=== PATIENT | female | born 1955 | race Caucasian/White ===

== ENCOUNTER 2021-07-10 16:52 | Inpatient (IN) ==
--- NOTE | 2021-07-10 17:40 | DR.SOBA ---
HPI Time Seen Time Seen by Provider: 07/10/21 17:39 Primary Care Physician Primary Care Physician: ANDREW HPI Comment HPI Comment: PATIENT IS 66YR OLD FEMALE IN ER WITH HEADACHE, BODYACHES, INCREASING SOB, NAUSEA AND DIARRHEA TIMES 2 WEEKS. GETTING WORSE. Complaints Chief Complaint Doctors Comments: NAUSEA, BODYACHES, SOB, HEADACHE AND DIARRHEA TIMES 2 WEEKS. Chief Complaint:: PT'S SPOUSE STATES PATIENT HAS BEEN SICK FOR 2 WEEKS WITH NAUSEA, ACHY, SHORTNESS OF BREATH, H/A, DIARRHEA, TIRED. UPON ENTRY OF TRIAGE ROOM NOTED PATIENT TO HAVE LABORED BREATHING. NOTED PATIENTS SPO2 TO BE 74%. COVID-19 Coronavirus risk:travel/contact w/high risk person: No Has patient experienced Coronavirus symptoms: Yes Coronavirus symptoms experienced: Shortness of Breath Reviewed Nurses Notes Reviewed: Yes Source History Provided: Patient and Family Member Mode of Arrival Mode of Arrival: Ambulatory Timing Onset of Chief Complaint: 06/26/21 Duration Duration: Weeks Context Onset:: At Rest PE Risk Factors:: None History of:: None PMH PMH Past Medical History: Yes Past Medical History: Asthma, Diabetes, Dyslipidemia, Hypertension and Sleep Apnea Past Surgical History: Yes Surgical History: Bowel Resection, Cholecystectomy, Hysterectomy, Ortho Surgery and Tonsillectomy Family History History of Family Medical Conditions: No Social History Does any household member use tobacco: No Alcohol Use: None Do you use any recreational Drugs:: No Lives With: Spouse Lives Where: Home Travel Risk Coronavirus risk:travel/contact w/high risk person: No Has patient experienced Coronavirus symptoms: Yes Coronavirus symptoms experienced: Shortness of Breath Infectious screening In the last 2 months have you had wt loss of >10#?: NO Have you had fever, night sweats or hemotysis?: No Have you traveled outside the country in the last 6 months?: No Isolation: Droplet ROS Review of Systems Constitutional: See HPI, Weakness and Fatigue; negative Fever Eyes: No Symptoms Reported and See HPI ENTM: See HPI and Nose Congestion Respiratoy: See HPI, Productive Cough and Short of Breath; negative Wheezing Cardiovascular: No Symptoms Reported, See HPI and Chest Pain (TIGHTNESS.) Gastrointestinal/Abdominal: See HPI and Diarrhea; negative Abdominal Pain and Vomiting Genitourinary: No Symptoms Reported and See HPI; negative Dysuria Neurological: See HPI, Headache and Weakness; negative Dizziness Musculoskeletal: See HPI and Muscle Pain Integumentary: No Symptoms Reported and See HPI; negative Change in Color, Rash and Juandice Hematologic/Lymphatic: No Symptoms Reported, See HPI and Easy Bruising Endocrine: No Symptoms Reported, Increased Thirst and Increased Urine Psychiatric: No Symptoms Reported and See HPI All Other Systems: Reviewed and Negative PE Vital Signs Vitals: Temperature 98.7 F Pulse Rate 70 Respiratory Rate 24 Blood Pressure 173/84 O2 Sat by Pulse Oximetry 90 General Limitations: No Limitations General Appearance: Alert and In No Apparent Distress Head Head Exam: Normal Inspection Eyes Eye exam: Normal Appearance; negative Scleral Icterus and Conjunctival Injection ENT ENT Exam: Normal Exam, Normal Oropharynx, Normal External Ear Exam and TM's Normal Bilaterally Neck Neck Exam: Normal Inspection and Trachea Midline; negative Tenderness and Lymphadenopathy Chest Chest Inspection: Normal Inspection and Symmetric Chest Wall Rise; negative Tenderness Respiratory Respiratory Exam: Normal Lung Sounds Bilat and Respiratory Distress; negative Accessory Muscle Use and Chest Wall Tenderness Respiratory Exam: Bilateral: Rhonchi and Lower: Rhonchi Cardiovascular Cardiovascular Exam: Regular Rate, Normal Rhythm and Normal Heart Sounds; negative Systolic Murmur and Diastolic Murmur Abdominal Exam Abdominal Exam: Normal Inspection, Normal Bowel Sounds and Soft; negative Tenderness Extremities Extremities Exam: Normal Inspection and Normal Capillary Refill Back Back Exam: Normal Inspection; negative (R) CVA Tenderness and (L) CVA Tenderness Neurologic Neurological Exam: Alert and Oriented X3; negative Motor Sensory Deficit Psychiatric Psychiatric Exam: Normal Affect and Normal Mood Skin Skin Exam: Dry MDM Additional Information Obtained Additional Information Obtained From: Family Differential Diagnosis Differential Diagnosis: Bronchitis, CHF, Dysrhythmia, Hyponatremia, Mycardial Infarction, Pneumonia, Pneumothorax, Pulmonary embolism, Respiratory Insufficiency, Sinusitis and URI COURSE Treatment Treatment: SEE ORDERS. Education/Counseling Education/Counseling: Patient and Family Educated On: Diagnosis ROR Labs Reviewed Laboratory Results Reviewed?: Yes Result Diagrams: 07/10/21 17:56 07/10/21 17:56 Laboratory: WBC 5.6 X10^3/uL (3.6-10.0) 07/10/21 17:56 RBC 4.50 X10^6/uL (3.5-5.4) 07/10/21 17:56 Hgb 12.8 g/dL (12.0-16.0) 07/10/21 17:56 Hct 37.8 % (36.0-47.0) 07/10/21 17:56 MCV 84.0 fL (80.0-100.0) 07/10/21 17:56 MCH 28.6 pg (27.0-34.0) 07/10/21 17:56 MCHC 34.0 g/dL (33.0-35.0) 07/10/21 17:56 RDW 14.7 % (11.6-16.5) 07/10/21 17:56 Plt Count 218 X10^3/uL (150.0-450.0) 07/10/21 17:56 MPV 8.8 fL (7.4-11.0) 07/10/21 17:56 Neut % (Auto) 62.0 % (42.0-75.0) 07/10/21 17:56 Lymph % (Auto) 27.9 % (21.0-51.0) 07/10/21 17:56 [place] % (Auto) 9.8 % (0.0-13.0) 07/10/21 17:56 Eos % (Auto) 0.1 % (0.9-2.9) L 07/10/21 17:56 Baso % (Auto) 0.2 % (0.2-1.0) 07/10/21 17:56 Neut # (Auto) 3.5 x10^3/uL (2.2-4.8) 07/10/21 17:56 Lymph # (Auto) 1.6 X10^3/uL (1.3-2.9) 07/10/21 17:56 [place] # (Auto) 0.5 x10^3/uL (0.3-0.8) 07/10/21 17:56 Eos # (Auto) 0.0 x10^3/uL (0.0-0.2) 07/10/21 17:56 Baso # (Auto) 0.0 X10^3/uL (0.0-0.1) 07/10/21 17:56 Absolute Nucleated RBC 0.1 /100WBC 07/10/21 17:56 D-Dimer 1.37 ug/ml (0.0-0.57) H* 07/10/21 17:56 Sample Site Rra 07/10/21 18:55 ABG pH 7.460 (7.35-7.45) H 07/10/21 18:55 ABG pCO2 37.0 mmHg (35.0-45.0) 07/10/21 18:55 ABG pO2 55.0 mmHg (80.0-100.0) L 07/10/21 18:55 ABG HCO3 26.3 mmol/L (22-26) H 07/10/21 18:55 ABG O2 Saturation 90.0 % (90-100) 07/10/21 18:55 ABG Base Excess 2.5 mmol/L (-2.0-2.0) H 07/10/21 18:55 Pedro Test Pos 07/10/21 18:55 A-a Gradient 155.0 mmHg 07/10/21 18:55 FiO2 36.0 07/10/21 18:55 Blood Gas Comments Michael well ms/mtf 07/10/21 18:55 Sodium 136 mmol/L (136-145) 07/10/21 17:56 Corrected Sodium 139 mmol/L (136-145) 07/10/21 17:56 Potassium 4.1 mmol/L (3.5-5.1) 07/10/21 17:56 Chloride 102 mmol/L (98-107) 07/10/21 17:56 Carbon Dioxide 25.2 mmol/L (21-32) 07/10/21 17:56 BUN 12 mg/dL (7-18) 07/10/21 17:56 Creatinine 1.30 mg/dL (0.55-1.02) H 07/10/21 17:56 Est GFR (MDRD) Af Amer 53 (>60) L 07/10/21 17:56 Est GFR (MDRD) Non-Af 43 (>60) L 07/10/21 17:56 Glucose 212 mg/dL (65-99) H 07/10/21 17:56 Lactic Acid 1.4 mmol/L (0.4-2.0) 07/10/21 17:56 Calcium 8.3 mg/dL (8.5-10.1) L 07/10/21 17:56 Corrected Calcium 9.3 mg/dL (8.5-10.1) 07/10/21 17:56 Ferritin 805 ng/mL (8-252) H 07/10/21 17:56 Total Bilirubin 0.20 mg/dL (0.2-1.0) 07/10/21 17:56 AST 25 Units/L (15-37) 07/10/21 17:56 ALT 17 Units/L (12-78) 07/10/21 17:56 Alkaline Phosphatase 77 Units/L (46-116) 07/10/21 17:56 Creatine Kinase 36 Units/L (26-192) 07/10/21 17:56 CK-MB (CK-2) < 1.0 ng/mL (0-4.0) 07/10/21 17:56 CK/CKMB % Calc 2.8 % (<4) 07/10/21 17:56 Troponin I < 0.02 ng/mL (0-1.5) 07/10/21 17:56 C-Reactive Protein 48.60 mg/L (0-3.0) H 07/10/21 17:56 B-Natriuretic Peptide 398 pg/mL (0-79) H 07/10/21 17:56 Total Protein 7.1 g/dL (6.4-8.2) 07/10/21 17:56 Albumin 2.7 g/dL (3.4-5.0) L 07/10/21 17:56 Globulin 4.4 g/dL (2.5-4.5) 07/10/21 17:56 Albumin/Globulin Ratio 0.6 Ratio (1.1-2.1) L 07/10/21 17:56 SARS-CoV-2 (PCR) Positive (NEGATIVE) A 07/10/21 18:08 Influenza Type A (PCR) Negative (NEGATIVE) 07/10/21 18:08 Influenza Type B (PCR) Negative (NEGATIVE) 07/10/21 18:08 RSV (PCR) Negative (NEGATIVE) 07/10/21 18:08 XRAY XRAY Interpreted by: Radiologist (REPORTS NOTED AND DISCUSSED WITH PATIENT ) and Self Opioid Opioid Risk Tool Age (Param box if 16-45): No History of Preadolescent Sexual Abuse: No Total: 0 Total Score Risk Category: Low Risk Copyright: Herman predicting aberrant behaviors Diagnosis Discharge Problem: Pneumonia, COVID-19 virus infection, Hypoxia Instructions Forms: Precautions for COVID19 [facility] Patient [facility] Social Distancing
--- NOTE | 2021-07-10 18:07 | RAD ---
HISTORYHYPOXIA ASTHMA, DM, HTN, SLEEP APNEA, DYSLIPIDEMIA, SX: BOWEL RESECTION, CHOLECYSTECTOMY, HYSTERECTOMY, TONSILLECTOMY, ORTHOSTUDYCHEST, 1 VIEWCOMPARISONNone available.FINDINGSThe trachea is midline. The cardiac silhouette is enlarged. The lungs demonstrate airspace opacities in the perihilar regions of the chest bilaterally with intervening interstitial disease/densities which can be seen with mild edema or perihilar pneumonia/infectious etiologies. Please correlate medically and follow-up to complete resolution. No other acute cardiopulmonary process is seen. No pneumothorax is identified. No large pleural effusion is evident. The bony thorax is unremarkable.IMPRESSIONPerihilar airspace and interstitial disease observed, as above.Electronically signed by: MIGDALIA HERNANDEZ III (Jul 10, 2021 18:05:31)
[2021-07-10 18:21] LABS: BASOPHILS % (AUTO) 0.2 % (0.2-1.0); EOSINOPHILS % (AUTO) 0.1 % (0.9-2.9); HEMATOCRIT 37.8 % (36.0-47.0); HEMOGLOBIN 12.8 g/dL (12.0-16.0); LYMPHOCYTES # (AUTO) 1.6 X10^3/uL (1.3-2.9); LYMPHOCYTES % (AUTO) 27.9 % (21.0-51.0); MEAN CORPUSCULAR HEMOGLOBIN 28.6 pg (27.0-34.0); MEAN PLATELET VOLUME 8.8 fL (7.4-11.0); MONOCYTES # (AUTO) 0.5 x10^3/uL (0.3-0.8); MONOCYTES % (AUTO) 9.8 % (0.0-13.0); NEUTROPHILS # (AUTO) 3.5 x10^3/uL (2.2-4.8); PLATELET COUNT 218 X10^3/uL (150.0-450.0); RED CELL DISTRIBUTION WIDTH 14.7 % (11.6-16.5); WHITE BLOOD COUNT 5.6 X10^3/uL (3.6-10.0)
[2021-07-10 18:34] LABS: LACTIC ACID 1.4 mmol/L (0.4-2.0)
[2021-07-10 18:42] LABS: ALANINE AMINOTRANSFERASE 17 Units/L (12-78); ALBUMIN 2.7 g/dL (3.4-5.0); ALKALINE PHOSPHATASE 77 Units/L (46-116); ASPARTATE AMINO TRANSFERASE 25 Units/L (15-37); BLOOD UREA NITROGEN 12 mg/dL (7-18); CALCIUM 8.3 mg/dL (8.5-10.1); CARBON DIOXIDE 25.2 mmol/L (21-32); CHLORIDE 102 mmol/L (98-107); CKMB % 2.8 % (<4); COR CA(FOR HYPOALB) 9.3 mg/dL (8.5-10.1); COR NA(FOR HYPERGLY) 139 mmol/L (136-145); CREATINE KINASE 36 Units/L (26-192); CREATINE KINASE MB < 1.0 ng/mL (0-4.0); SODIUM 136 mmol/L (136-145); TOTAL PROTEIN 7.1 g/dL (6.4-8.2); TROPONIN I < 0.02 ng/mL (0-1.5); eGFR NON BLACK RACES 43 (>60)
[2021-07-10] MEDS ORDERED: TYLENOL 325 MG TAB PO ONE ×2 (18:53→18:55)
[2021-07-10 18:59] LABS: ABG ALLEN TEST POS; ABG BASE EXCESS 2.5 mmol/L (-2.0-2.0); ABG HCO3 26.3 mmol/L (22-26)
[2021-07-10] MEDS ORDERED: NS 100 ML IV 100 ML ONE ×2 (19:20→20:40)
--- NOTE | 2021-07-10 20:05 | CT ---
HISTORYELEVATED D DIMERSTUDYCTA CHESTCOMPARISONCleveland Clinic [facility]t radi[facility], July 10, 2021TECHNIQUEAxial CT images of the chest were obtained after the administration of IV contrast utilizing a CTA protocol. 3D MIPS were performed and reviewed for further evaluation.Radiation dose: 660.20 mGy-cm total DLPFINDINGSNo significant pericardial effusion.Shotty hilar and mediastinal lymph nodes.Aorta is normal in caliber without dissection.Pulmonary arteries are normal in caliber without filling defects to suggest a pulmonary embolus.Airways are widely patent.Thyroid appears normal.No pleural effusion.Bilateral patchy diffuse airspace opacities scattered throughout the lung parenchyma.No pneumothorax.No concerning lung parenchymal lesion identified.Status post cholecystectomy.Imaged portion of the upper abdomen is unremarkable.No acute osseous abnormality.IMPRESSION1. No pulmonary embolus identified.2. Diffuse patchy airspace opacities scattered throughout the lung parenchyma is concerning for an atypical/viral infectious process. Recommend correlation with COVID testing.Electronically signed by: Tevin Arita (Jul 10, 2021 20:03:57)
[2021-07-10] MEDS ORDERED: ZOSYN VIAL 3.375 GRAMS 3.375 G in NS 100 ML IV + SPIKE MINIBAG* 100 ML IV ONE (20:33)
[2021-07-10] MEDS ORDERED: ZOSYN VIAL 3.375 GRAMS IV ONE (20:40)
[2021-07-10] MEDS ORDERED: NS 100 ML IV + SPIKE MINIBAG* 100 ML IV ONE (20:40)
[2021-07-10 22:46] VITALS: BMI 38.1
[2021-07-10] MEDS ORDERED: NS 1,000 ML IV 1,000 ML IV SCH (23:06)
[2021-07-10] MEDS ORDERED: REMDESIVIR 200 MG in NS 250 ML IV 250 ML IV ONE (23:06)
[2021-07-10] MEDS: SOLU-Medrol 40 MG VIAL IVP SCH (23:55)
[2021-07-11] MEDS: ASCORBIC ACID INJ MULTI-DOSE VIAL 1,500 MG in NS 100 ML IV 100 ML IV SCH ×2 (02:19→09:16)
[2021-07-11 05:23] LABS: BASOPHILS % (AUTO) 0.2 % (0.2-1.0); HEMATOCRIT 36.5 % (36.0-47.0); HEMOGLOBIN 12.6 g/dL (12.0-16.0); LYMPHOCYTES # (AUTO) 0.6 X10^3/uL (1.3-2.9); MEAN CORPUSCULAR HEMOGLOBIN 28.6 pg (27.0-34.0); MEAN CORPUSCULAR HGB CONC 34.5 g/dL (33.0-35.0); MEAN PLATELET VOLUME 8.9 fL (7.4-11.0); MONOCYTES # (AUTO) 0.2 x10^3/uL (0.3-0.8); NEUTROPHILS # (AUTO) 3.3 x10^3/uL (2.2-4.8); NEUTROPHILS % (AUTO) 80.8 % (42.0-75.0); PLATELET COUNT 214 X10^3/uL (150.0-450.0); RED BLOOD COUNT 4.39 X10^6/uL (3.5-5.4); WHITE BLOOD COUNT 4.1 X10^3/uL (3.6-10.0)
[2021-07-11] MEDS: ZOSYN VIAL 3.375 GRAMS 3.375 G in NS 100 ML IV + SPIKE MINIBAG* 100 ML IV SCH ×3 (05:24→21:02)
[2021-07-11 05:38] LABS: ALBUMIN 2.6 g/dL (3.4-5.0); CALCIUM 8.1 mg/dL (8.5-10.1); CARBON DIOXIDE 25.4 mmol/L (21-32); COR CA(FOR HYPOALB) 9.2 mg/dL (8.5-10.1); CREATININE 1.2 mg/dL (0.55-1.02); TOTAL PROTEIN 6.8 g/dL (6.4-8.2)
[2021-07-11] MEDS: HumuLIN R SUBCUT PRN ×4 (05:39→20:16)
[2021-07-11] MEDS ORDERED: HumuLIN R SUBCUT SCH (06:00)
[2021-07-11] MEDS: SOLU-Medrol 40 MG VIAL IVP SCH ×3 (06:03→21:02)
[2021-07-11] MEDS ORDERED: LEXAPRO ONE (08:49)
[2021-07-11] MEDS ORDERED: PEPCID TAB 40 MG PO SCH (09:00)
[2021-07-11] MEDS ORDERED: VITAMIN D (1.25MG) PO SCH (09:00)
[2021-07-11] MEDS ORDERED: VITAMIN A PO SCH (09:00)
[2021-07-11] MEDS: PULMICORT NEB TX 0.5 MG NEB SCH ×2 (09:10→21:46)
[2021-07-11] MEDS: BROVANA IN SCH ×2 (09:10→21:46)
[2021-07-11] MEDS: LOPRESSOR TAB 25 MG PO SCH ×2 (09:17→20:13)
[2021-07-11] MEDS: LEXAPRO PO SCH (09:17)
[2021-07-11] MEDS: NORVASC TAB 5 MG PO SCH (09:18)
[2021-07-11] MEDS: PEPCID TAB 20 MG PO SCH (09:19)
[2021-07-11] MEDS: LOVENOX INJ 30 MG SYR SC SCH ×2 (09:19→20:13)
[2021-07-11] MEDS: PriLOSEC PO SCH (09:20)
[2021-07-11] MEDS: TRICOR TAB 160 MG PO SCH (09:21)
[2021-07-11] MEDS: SYNTHROID 175 mcg TAB PO SCH (09:21)
[2021-07-11] MEDS: ZINC SULFATE PO SCH ×2 (09:22→20:13)
[2021-07-11] MEDS ORDERED: NS 100 ML IV 100 ML ONE (09:24)
[2021-07-11] MEDS: NovoLIN N or HumuLIN N SC SCH ×2 (09:29→21:01)
--- NOTE | 2021-07-11 16:29 | DR.H&P ---
H&P History & Physical for Day of: H&P Date: 07/11/21 Chief Complaint Chief Complaint: worsening dyspnea, cough Allergies Allergies Allergy/AdvReac Type Severity Reaction Status Date / Time No Known Drug Allergies Allergy Verified 07/10/21 18:42 History of Present Illness History of Present Illness: Ms Craven is a 66y/o female with a PMH of asthma, Diabetes, HTN and HLD presented with worsening dyspnea, generalized weakness and poor appetite. Patient reports being sick for over a week and was being treated outpatient. Her daughter had covid over 2 weeks ago. Patient has not had covid infection before. She did have some nausea, vomiting and decreased appetite. She has been afebrile. She is currently on 6L NC. ER work up - Labs reviewed - CTA: no PE, pulmonary opacities noted Plan: Admit to ICU with COVID protocol. Continue IV Remdesivir, Solumedrol and antibiotics. Continue nebs and pulmicort. Continue vitamin support. Wean O2 as tolerated to keep sats >88%. PT/OT as tolerated. Encourage PO intake. Will order ECHO to evaluate LV function. Resume home medications. Monitor AM labs and imaging. Time spent for clinical assessment, reviewing labs/imaging, physical exam, decision making and documentation greater than 45 mins. Past Medical History Past Medical History: Asthma, Diabetes, Dyslipidemia, Hypertension and Sleep Apnea Past Surgical History Surgical History: Bowel Resection, Cholecystectomy, Hysterectomy, Ortho Surgery and Tonsillectomy Family History Family Medical History: Cancer and Hypertension Social History Does patient currently use any type of tobacco product: No Have you used tobacco products in the last 12 months: No Type of Tobacco Use: None Does any household member use tobacco: No Alcohol Use: None Drug Use: None Prescription drug monitoring program results: PDMP reviewed and no concerns identified Medications Home Medications: No Known Drug Allergies Allergy (Verified 07/10/21 18:42) CONTINUE taking the following medications amlodipine 5 mg PO DAILY 07/10/21 [History] amoxicillin-pot clavulanate 1 tab PO BID 07/10/21 [History] atorvastatin 20 mg PO DAILY 07/10/21 [History] escitalopram oxalate 10 mg PO DAILY 07/10/21 [History] famotidine 20 mg PO BID 07/10/21 [History] insulin NPH isoph U-100 human [Humulin N NPH U-100 Insulin] 51 unit SUBCUT BID 07/10/21 [History] insulin regular human [Humulin R Regular U-100 Insuln] 1 sliding scale dose SUBCUT TID 07/10/21 [History] levothyroxine [Euthyrox] 175 mcg PO DAILY 07/10/21 [History] metformin 500 mg PO DAILY 07/10/21 [History] metoprolol tartrate 25 mg PO BID 07/10/21 [History] omeprazole 40 mg PO DAILY 07/10/21 [History] Labs Result Diagrams: 07/13/21 04:53 07/13/21 04:53 Labs: Laboratory WBC 4.1 X10^3/uL (3.6-10.0) 07/11/21 04:26 RBC 4.39 X10^6/uL (3.5-5.4) 07/11/21 04:26 Hgb 12.6 g/dL (12.0-16.0) 07/11/21 04:26 Hct 36.5 % (36.0-47.0) 07/11/21 04:26 MCV 83.0 fL (80.0-100.0) 07/11/21 04:26 MCH 28.6 pg (27.0-34.0) 07/11/21 04:26 MCHC 34.5 g/dL (33.0-35.0) 07/11/21 04:26 RDW 15.0 % (11.6-16.5) 07/11/21 04:26 Plt Count 214 X10^3/uL (150.0-450.0) 07/11/21 04:26 MPV 8.9 fL (7.4-11.0) 07/11/21 04:26 Neut % (Auto) 80.8 % (42.0-75.0) H 07/11/21 04:26 Lymph % (Auto) 15.0 % (21.0-51.0) L 07/11/21 04:26 [place] % (Auto) 4.0 % (0.0-13.0) 07/11/21 04:26 Eos % (Auto) 0.0 % (0.9-2.9) L 07/11/21 04:26 Baso % (Auto) 0.2 % (0.2-1.0) 07/11/21 04:26 Neut # (Auto) 3.3 x10^3/uL (2.2-4.8) 07/11/21 04:26 Lymph # (Auto) 0.6 X10^3/uL (1.3-2.9) L 07/11/21 04:26 [place] # (Auto) 0.2 x10^3/uL (0.3-0.8) L 07/11/21 04:26 Eos # (Auto) 0.0 x10^3/uL (0.0-0.2) 07/11/21 04:26 Baso # (Auto) 0.0 X10^3/uL (0.0-0.1) 07/11/21 04:26 Absolute Nucleated RBC 0.1 /100WBC 07/11/21 04:26 D-Dimer 1.37 ug/ml (0.0-0.57) H* 07/10/21 17:56 Sample Site Rra 07/10/21 18:55 ABG pH 7.460 (7.35-7.45) H 07/10/21 18:55 ABG pCO2 37.0 mmHg (35.0-45.0) 07/10/21 18:55 ABG pO2 55.0 mmHg (80.0-100.0) L 07/10/21 18:55 ABG HCO3 26.3 mmol/L (22-26) H 07/10/21 18:55 ABG O2 Saturation 90.0 % (90-100) 07/10/21 18:55 ABG Base Excess 2.5 mmol/L (-2.0-2.0) H 07/10/21 18:55 Pedro Test Pos 07/10/21 18:55 A-a Gradient 155.0 mmHg 07/10/21 18:55 FiO2 36.0 07/10/21 18:55 Blood Gas Comments Michael well ms/mtf 07/10/21 18:55 Sodium 140 mmol/L (136-145) 07/11/21 04:26 Corrected Sodium 144 mmol/L (136-145) 07/11/21 04:26 Potassium 4.2 mmol/L (3.5-5.1) 07/11/21 04:26 Chloride 103 mmol/L (98-107) 07/11/21 04:26 Carbon Dioxide 25.4 mmol/L (21-32) 07/11/21 04:26 BUN 11 mg/dL (7-18) 07/11/21 04:26 Creatinine 1.20 mg/dL (0.55-1.02) H 07/11/21 04:26 Est GFR (MDRD) Af Amer 58 (>60) L 07/11/21 04:26 Est GFR (MDRD) Non-Af 48 (>60) L 07/11/21 04:26 Glucose 282 mg/dL (65-99) H 07/11/21 04:26 POC Glucose (mg/dL) 287 mg/dL (65-99) H 07/11/21 16:16 Lactic Acid 1.4 mmol/L (0.4-2.0) 07/10/21 17:56 Calcium 8.1 mg/dL (8.5-10.1) L 07/11/21 04:26 Corrected Calcium 9.2 mg/dL (8.5-10.1) 07/11/21 04:26 Ferritin 805 ng/mL (8-252) H 07/10/21 17:56 Total Bilirubin 0.20 mg/dL (0.2-1.0) 07/11/21 04:26 AST 22 Units/L (15-37) 07/11/21 04:26 ALT 15 Units/L (12-78) 07/11/21 04:26 Alkaline Phosphatase 73 Units/L (46-116) 07/11/21 04:26 Creatine Kinase 36 Units/L (26-192) 07/10/21 17:56 CK-MB (CK-2) < 1.0 ng/mL (0-4.0) 07/10/21 17:56 CK/CKMB % Calc 2.8 % (<4) 07/10/21 17:56 Troponin I < 0.02 ng/mL (0-1.5) 07/10/21 17:56 C-Reactive Protein 48.60 mg/L (0-3.0) H 07/10/21 17:56 B-Natriuretic Peptide 398 pg/mL (0-79) H 07/10/21 17:56 Total Protein 6.8 g/dL (6.4-8.2) 07/11/21 04:26 Albumin 2.6 g/dL (3.4-5.0) L 07/11/21 04:26 Globulin 4.2 g/dL (2.5-4.5) 07/11/21 04:26 Albumin/Globulin Ratio 0.6 Ratio (1.1-2.1) L 07/11/21 04:26 SARS-CoV-2 (PCR) Positive (NEGATIVE) A 07/10/21 18:08 Influenza Type A (PCR) Negative (NEGATIVE) 07/10/21 18:08 Influenza Type B (PCR) Negative (NEGATIVE) 07/10/21 18:08 RSV (PCR) Negative (NEGATIVE) 07/10/21 18:08 Review of Systems Constitutional: Chills, Weakness and Malaise Eyes: No Symptoms Reported ENT: No Symptoms Reported Respiratory: Cough, Shortness of Breath, SOB with Excertion and Sputum Cardiovascular: No Symptoms Reported Gastrointestinal: Nausea Genitourinary: No Symptoms Reported Musculoskeletal: No Symptoms Reported Skin: No Symptoms Reported Neurological: No Symptoms Reported Physical Exam Vital Signs: Temperature 98 F Pulse Rate 76 Respiratory Rate 37 Blood Pressure 140/62 O2 Sat by Pulse Oximetry 94 Oriented: Normal Eyes: Normal Ear: Normal Nose: Normal Throat: Normal Respiratory: Diminished Throughout, Wheezes Throughout, RLL Rales and LLL Rales Cardiovascular: Normal Auscultation: Bowel Sounds: Normal Palpation: Normal Tenderness: Normal Skin: Decreased [place] Musculoskeletal: Normal Psychiatric: Anxiety Mood Description: Calm Affect: Normal Speech Pattern: Clear and Appropriate Assessment/Plan (1) Pneumonia: Qualifiers: Laterality: unspecified laterality Lung location: unspecified part of lung Pneumonia type: due to unspecified organism Qualified Code(s): J18.9 - Pneumonia, unspecified organism Status: Acute (2) COVID-19 virus infection: Status: Acute (3) Acute respiratory failure with hypoxia: Status: Acute (4) HTN (hypertension): Qualifiers: Hypertension type: primary hypertension Qualified Code(s): I10 - Essential (primary) hypertension Status: Acute Review H&P Reviewed: Yes Patient was examined?: Yes
[2021-07-11] MEDS ORDERED: SNACK - Diabetic Appropriate PO SCH (20:00)
[2021-07-11] MEDS: SNACK - Diabetic Appropriate PO SCH (20:12)
[2021-07-11] MEDS: REMDESIVIR 100 MG in NS 100 ML IV + SPIKE MINIBAG* 120 ML IV SCH (20:14)
[2021-07-12 05:25] LABS: BASOPHILS % (AUTO) 0.1 % (0.2-1.0); HEMATOCRIT 35.8 % (36.0-47.0); HEMOGLOBIN 12.3 g/dL (12.0-16.0); LYMPHOCYTES # (AUTO) 1.1 X10^3/uL (1.3-2.9); LYMPHOCYTES % (AUTO) 22.8 % (21.0-51.0); MEAN CORPUSCULAR HEMOGLOBIN 28.4 pg (27.0-34.0); MEAN CORPUSCULAR HGB CONC 34.2 g/dL (33.0-35.0); MEAN PLATELET VOLUME 8.8 fL (7.4-11.0); MONOCYTES # (AUTO) 0.4 x10^3/uL (0.3-0.8); MONOCYTES % (AUTO) 8.9 % (0.0-13.0); NEUTROPHILS # (AUTO) 3.2 x10^3/uL (2.2-4.8); NEUTROPHILS % (AUTO) 68.2 % (42.0-75.0); PLATELET COUNT 255 X10^3/uL (150.0-450.0); RED BLOOD COUNT 4.31 X10^6/uL (3.5-5.4); RED CELL DISTRIBUTION WIDTH 14.9 % (11.6-16.5); WHITE BLOOD COUNT 4.7 X10^3/uL (3.6-10.0)
[2021-07-12] MEDS: ZOSYN VIAL 3.375 GRAMS 3.375 G in NS 100 ML IV + SPIKE MINIBAG* 100 ML IV SCH ×3 (05:28→22:22)
[2021-07-12] MEDS: SOLU-Medrol 40 MG VIAL IVP SCH ×3 (05:28→22:22)
[2021-07-12 05:43] LABS: ALBUMIN 2.6 g/dL (3.4-5.0); CALCIUM 8.5 mg/dL (8.5-10.1); CARBON DIOXIDE 29.4 mmol/L (21-32); COR CA(FOR HYPOALB) 9.6 mg/dL (8.5-10.1); CREATININE 1.17 mg/dL (0.55-1.02); TOTAL PROTEIN 6.7 g/dL (6.4-8.2)
[2021-07-12] MEDS ORDERED: LEXAPRO ONE (08:26)
[2021-07-12] MEDS: BROVANA IN SCH ×2 (08:35→20:39)
[2021-07-12] MEDS: PULMICORT NEB TX 0.5 MG NEB SCH ×2 (08:35→20:39)
[2021-07-12] MEDS: LEXAPRO PO SCH (08:48)
[2021-07-12] MEDS: PEPCID TAB 20 MG PO SCH (08:49)
[2021-07-12] MEDS: LOPRESSOR TAB 25 MG PO SCH ×2 (08:49→20:34)
[2021-07-12] MEDS: LOVENOX INJ 30 MG SYR SC SCH ×2 (08:49→20:35)
[2021-07-12] MEDS: PriLOSEC PO SCH (08:49)
[2021-07-12] MEDS: NORVASC TAB 5 MG PO SCH (08:49)
[2021-07-12] MEDS: VITAMIN D3 125 mcg (5,000 UNITS) PO SCH (08:50)
[2021-07-12] MEDS: VITAMIN A PO SCH (08:50)
[2021-07-12] MEDS: TRICOR TAB 160 MG PO SCH (08:50)
[2021-07-12] MEDS: ZINC SULFATE PO SCH ×2 (08:50→20:58)
[2021-07-12] MEDS: VITAMIN C PO SCH (08:50)
[2021-07-12] MEDS: NovoLIN N or HumuLIN N SC SCH ×2 (09:23→20:34)
[2021-07-12] MEDS: SYNTHROID 175 mcg TAB PO SCH (09:23)
[2021-07-12] MEDS: HumuLIN R SUBCUT PRN ×3 (12:34→20:32)
[2021-07-12] MEDS: SNACK - Diabetic Appropriate PO SCH (20:34)
[2021-07-12] MEDS: REMDESIVIR 100 MG in NS 100 ML IV + SPIKE MINIBAG* 120 ML IV SCH (20:35)
[2021-07-13 05:33] LABS: BASOPHILS % (AUTO) 0 % (0.2-1.0); HEMATOCRIT 36.2 % (36.0-47.0); HEMOGLOBIN 12.2 g/dL (12.0-16.0); LYMPHOCYTES # (AUTO) 0.8 X10^3/uL (1.3-2.9); MEAN CORPUSCULAR HEMOGLOBIN 28.2 pg (27.0-34.0); MEAN CORPUSCULAR HGB CONC 33.7 g/dL (33.0-35.0); MEAN CORPUSCULAR VOLUME 83.7 fL (80.0-100.0); MEAN PLATELET VOLUME 8.6 fL (7.4-11.0); MONOCYTES # (AUTO) 0.5 x10^3/uL (0.3-0.8); MONOCYTES % (AUTO) 8.3 % (0.0-13.0); NEUTROPHILS # (AUTO) 4.7 x10^3/uL (2.2-4.8); NEUTROPHILS % (AUTO) 78.7 % (42.0-75.0); PLATELET COUNT 282 X10^3/uL (150.0-450.0); RED BLOOD COUNT 4.33 X10^6/uL (3.5-5.4); RED CELL DISTRIBUTION WIDTH 14.7 % (11.6-16.5); WHITE BLOOD COUNT 5.9 X10^3/uL (3.6-10.0)
[2021-07-13 05:40] LABS: ALBUMIN 2.5 g/dL (3.4-5.0); CALCIUM 7.8 mg/dL (8.5-10.1); CARBON DIOXIDE 30.1 mmol/L (21-32); CREATININE 1.2 mg/dL (0.55-1.02); TOTAL PROTEIN 6.4 g/dL (6.4-8.2)
[2021-07-13] MEDS: SOLU-Medrol 40 MG VIAL IVP SCH ×3 (05:49→21:20)
[2021-07-13] MEDS: ZOSYN VIAL 3.375 GRAMS 3.375 G in NS 100 ML IV + SPIKE MINIBAG* 100 ML IV SCH ×3 (05:49→22:40)
[2021-07-13] MEDS: HumuLIN R SUBCUT PRN ×2 (05:55→13:24)
[2021-07-13] MEDS ORDERED: LEXAPRO ONE (08:46)
[2021-07-13] MEDS: LOPRESSOR TAB 25 MG PO SCH ×2 (08:51→21:20)
[2021-07-13] MEDS: LEXAPRO PO SCH (08:51)
[2021-07-13] MEDS: LOVENOX INJ 30 MG SYR SC SCH ×2 (08:52→21:21)
[2021-07-13] MEDS: NORVASC TAB 5 MG PO SCH (08:54)
[2021-07-13] MEDS: PEPCID TAB 20 MG PO SCH (08:54)
[2021-07-13] MEDS: SYNTHROID 175 mcg TAB PO SCH (08:55)
[2021-07-13] MEDS: PriLOSEC PO SCH (08:55)
[2021-07-13] MEDS: TRICOR TAB 160 MG PO SCH (08:55)
[2021-07-13] MEDS: VITAMIN A PO SCH (08:55)
[2021-07-13] MEDS: ZINC SULFATE PO SCH ×2 (08:56→21:20)
[2021-07-13] MEDS: VITAMIN D3 125 mcg (5,000 UNITS) PO SCH (08:56)
[2021-07-13] MEDS: VITAMIN C PO SCH (08:56)
[2021-07-13] MEDS: PULMICORT NEB TX 0.5 MG NEB SCH ×2 (09:45→20:30)
[2021-07-13] MEDS: BROVANA IN SCH ×2 (09:45→20:30)
[2021-07-13] MEDS ORDERED: LASIX IVP ONE (10:44)
--- NOTE | 2021-07-13 10:52 | PCM.PROG ---
Progress Note Progress Note for Day of Date of Exam: 07/12/21 Subjective Subjective: Patient seen at bedside, no overnight events. She remains on 6L NC, reports feeling better. She still has some cough. Her appetite is still decreased, tolerating some food. Denies fever or chills. Labs reviewed Plan: Wean O2 as tolerated to keep sats>88%. Patient sats have remained above 90%. Continue IV solumedrol, Remdesivir and antibiotics. Continue nebs, pulmicort and IS. PT/OT as tolerated. Follow echo results and culture. Continue vitamin support. Monitor AM labs and imaging. Encouraged PO intake and sitting up on the chair. Past Medical Family Social History Past Med/Fam/Surg Hx: No changes since H&P Allergies: Allergies No Known Drug Allergies Allergy (Verified 07/10/21 18:42) Review of Systems ROS: No change since H&P Vital Signs and I&O's Vital Signs: Temperature 97.8 F Pulse Rate 69 Respiratory Rate 27 Blood Pressure 146/64 O2 Sat by Pulse Oximetry 91 Intake and Output: Intake & Output 07/10/21 07/11/21 07/12/21 07/13/21 23:59 23:59 23:59 23:59 Intake Total 550 / 550 1746 / 1746 1977 246 / 246 Balance 550 / 550 1746 / 1746 1977 246 / 246 Physical Exam Oriented: Normal Eyes: Normal Ear: Normal Nose: Normal Throat: Normal Respiratory: Generalized and Diminished Cardiovascular: Normal Auscultation: Bowel Sounds: Normal Tenderness: Normal Skin: Decreased Turgur Musculoskeletal: Normal Psychiatric: Normal Mood Description: Calm Affect: Normal Speech Pattern: Clear and Appropriate Laboratory and Diagnostics Result Diagrams: 07/13/21 04:53 07/13/21 04:53 Labs: 07/10/21 18:05 Blood Blood Culture - Preliminary 07/10/21 17:56 Blood Blood Culture - Preliminary Laboratory WBC 5.9 X10^3/uL (3.6-10.0) 07/13/21 04:53 RBC 4.33 X10^6/uL (3.5-5.4) 07/13/21 04:53 Hgb 12.2 g/dL (12.0-16.0) 07/13/21 04:53 Hct 36.2 % (36.0-47.0) 07/13/21 04:53 MCV 83.7 fL (80.0-100.0) 07/13/21 04:53 MCH 28.2 pg (27.0-34.0) 07/13/21 04:53 MCHC 33.7 g/dL (33.0-35.0) 07/13/21 04:53 RDW 14.7 % (11.6-16.5) 07/13/21 04:53 Plt Count 282 X10^3/uL (150.0-450.0) 07/13/21 04:53 MPV 8.6 fL (7.4-11.0) 07/13/21 04:53 Neut % (Auto) 78.7 % (42.0-75.0) H 07/13/21 04:53 Lymph % (Auto) 13.0 % (21.0-51.0) L 07/13/21 04:53 [place] % (Auto) 8.3 % (0.0-13.0) 07/13/21 04:53 Eos % (Auto) 0.0 % (0.9-2.9) L 07/13/21 04:53 Baso % (Auto) 0 % (0.2-1.0) L 07/13/21 04:53 Neut # (Auto) 4.7 x10^3/uL (2.2-4.8) 07/13/21 04:53 Lymph # (Auto) 0.8 X10^3/uL (1.3-2.9) L 07/13/21 04:53 [place] # (Auto) 0.5 x10^3/uL (0.3-0.8) 07/13/21 04:53 Eos # (Auto) 0.0 x10^3/uL (0.0-0.2) 07/13/21 04:53 Baso # (Auto) 0.0 X10^3/uL (0.0-0.1) 07/13/21 04:53 Absolute Nucleated RBC 0.1 /100WBC 07/13/21 04:53 D-Dimer 1.37 ug/ml (0.0-0.57) H* 07/10/21 17:56 Sample Site Rra 07/10/21 18:55 ABG pH 7.460 (7.35-7.45) H 07/10/21 18:55 ABG pCO2 37.0 mmHg (35.0-45.0) 07/10/21 18:55 ABG pO2 55.0 mmHg (80.0-100.0) L 07/10/21 18:55 ABG HCO3 26.3 mmol/L (22-26) H 07/10/21 18:55 ABG O2 Saturation 90.0 % (90-100) 07/10/21 18:55 ABG Base Excess 2.5 mmol/L (-2.0-2.0) H 07/10/21 18:55 Pedro Test Pos 07/10/21 18:55 A-a Gradient 155.0 mmHg 07/10/21 18:55 FiO2 36.0 07/10/21 18:55 Blood Gas Comments Michael well ms/mtf 07/10/21 18:55 Sodium 143 mmol/L (136-145) 07/13/21 04:53 Corrected Sodium 148 mmol/L (136-145) H 07/13/21 04:53 Potassium 4.0 mmol/L (3.5-5.1) 07/13/21 04:53 Chloride 106 mmol/L (98-107) 07/13/21 04:53 Carbon Dioxide 30.1 mmol/L (21-32) 07/13/21 04:53 BUN 21 mg/dL (7-18) H 07/13/21 04:53 Creatinine 1.20 mg/dL (0.55-1.02) H 07/13/21 04:53 Est GFR (MDRD) Af Amer 58 (>60) L 07/13/21 04:53 Est GFR (MDRD) Non-Af 48 (>60) L 07/13/21 04:53 Glucose 303 mg/dL (65-99) H 07/13/21 04:53 POC Glucose (mg/dL) 320 mg/dL (65-99) H 07/13/21 05:24 Lactic Acid 1.4 mmol/L (0.4-2.0) 07/10/21 17:56 Calcium 7.8 mg/dL (8.5-10.1) L 07/13/21 04:53 Corrected Calcium 9.0 mg/dL (8.5-10.1) 07/13/21 04:53 Ferritin 805 ng/mL (8-252) H 07/10/21 17:56 Total Bilirubin 0.30 mg/dL (0.2-1.0) 07/13/21 04:53 AST 21 Units/L (15-37) 07/13/21 04:53 ALT 14 Units/L (12-78) 07/13/21 04:53 Alkaline Phosphatase 61 Units/L (46-116) 07/13/21 04:53 Creatine Kinase 36 Units/L (26-192) 07/10/21 17:56 CK-MB (CK-2) < 1.0 ng/mL (0-4.0) 07/10/21 17:56 CK/CKMB % Calc 2.8 % (<4) 07/10/21 17:56 Troponin I < 0.02 ng/mL (0-1.5) 07/10/21 17:56 C-Reactive Protein 32.10 mg/L (0-3.0) H 07/12/21 04:50 B-Natriuretic Peptide 398 pg/mL (0-79) H 07/10/21 17:56 Total Protein 6.4 g/dL (6.4-8.2) 07/13/21 04:53 Albumin 2.5 g/dL (3.4-5.0) L 07/13/21 04:53 Globulin 3.9 g/dL (2.5-4.5) 07/13/21 04:53 Albumin/Globulin Ratio 0.6 Ratio (1.1-2.1) L 07/13/21 04:53 SARS-CoV-2 (PCR) Positive (NEGATIVE) A 07/10/21 18:08 Influenza Type A (PCR) Negative (NEGATIVE) 07/10/21 18:08 Influenza Type B (PCR) Negative (NEGATIVE) 07/10/21 18:08 RSV (PCR) Negative (NEGATIVE) 07/10/21 18:08 Plan (1) Pneumonia: Status: Acute Qualifiers: Laterality: unspecified laterality Lung location: unspecified part of lung Pneumonia type: due to unspecified organism Qualified Code(s): J18.9 - Pneumonia, unspecified organism (2) COVID-19 virus infection: Status: Acute (3) Acute respiratory failure with hypoxia: Status: Acute (4) HTN (hypertension): Status: Acute Qualifiers: Hypertension type: primary hypertension Qualified Code(s): I10 - Essential (primary) hypertension
--- NOTE | 2021-07-13 10:58 | PCM.PROG ---
Progress Note Progress Note for Day of Date of Exam: 07/13/21 Subjective Subjective: Patient seen at bedside, no overnight events. She remains on 6L NC, reports feeling better. She still has some cough. Denies fever or chills. Labs reviewed Plan: Wean O2 as tolerated to keep sats>88%. Patient sats have remained above 90%. Continue IV solumedrol, Remdesivir and antibiotics. Will give one dose of Lasix 40 mg IV. Continue nebs, pulmicort and IS. PT/OT as tolerated. Follow echo results and culture. Increase insulin to 55 units BID due to hyperglycemia. Continue vitamin support. Monitor AM labs and imaging. Encouraged PO intake and sitting up on the chair. Time spent for clinical assessment, reviewing labs/imaging, physical exam, decision making and documentation greater than 45 mins. Past Medical Family Social History Past Med/Fam/Surg Hx: No changes since H&P Allergies: Allergies No Known Drug Allergies Allergy (Verified 07/10/21 18:42) Review of Systems ROS: No change since H&P Vital Signs and I&O's Vital Signs: Temperature 97.8 F Pulse Rate 69 Respiratory Rate 27 Blood Pressure 146/64 O2 Sat by Pulse Oximetry 91 Intake and Output: Intake & Output 07/10/21 07/11/21 07/12/21 07/13/21 23:59 23:59 23:59 23:59 Intake Total 550 / 550 1746 / 1746 1977 246 / 246 Balance 550 / 550 1746 / 1746 1977 246 / 246 Physical Exam Oriented: Normal Eyes: Normal Ear: Normal Nose: Normal Throat: Normal Respiratory: Generalized, Diminished and Rales Cardiovascular: Normal Auscultation: Bowel Sounds: Normal Tenderness: Normal Skin: Decreased Turgur Musculoskeletal: Normal Psychiatric: Normal Mood Description: Calm Affect: Normal Speech Pattern: Clear and Appropriate Laboratory and Diagnostics Result Diagrams: 07/13/21 04:53 07/13/21 04:53 Labs: 07/10/21 18:05 Blood Blood Culture - Preliminary 07/10/21 17:56 Blood Blood Culture - Preliminary Laboratory WBC 5.9 X10^3/uL (3.6-10.0) 07/13/21 04:53 RBC 4.33 X10^6/uL (3.5-5.4) 07/13/21 04:53 Hgb 12.2 g/dL (12.0-16.0) 07/13/21 04:53 Hct 36.2 % (36.0-47.0) 07/13/21 04:53 MCV 83.7 fL (80.0-100.0) 07/13/21 04:53 MCH 28.2 pg (27.0-34.0) 07/13/21 04:53 MCHC 33.7 g/dL (33.0-35.0) 07/13/21 04:53 RDW 14.7 % (11.6-16.5) 07/13/21 04:53 Plt Count 282 X10^3/uL (150.0-450.0) 07/13/21 04:53 MPV 8.6 fL (7.4-11.0) 07/13/21 04:53 Neut % (Auto) 78.7 % (42.0-75.0) H 07/13/21 04:53 Lymph % (Auto) 13.0 % (21.0-51.0) L 07/13/21 04:53 [place] % (Auto) 8.3 % (0.0-13.0) 07/13/21 04:53 Eos % (Auto) 0.0 % (0.9-2.9) L 07/13/21 04:53 Baso % (Auto) 0 % (0.2-1.0) L 07/13/21 04:53 Neut # (Auto) 4.7 x10^3/uL (2.2-4.8) 07/13/21 04:53 Lymph # (Auto) 0.8 X10^3/uL (1.3-2.9) L 07/13/21 04:53 [place] # (Auto) 0.5 x10^3/uL (0.3-0.8) 07/13/21 04:53 Eos # (Auto) 0.0 x10^3/uL (0.0-0.2) 07/13/21 04:53 Baso # (Auto) 0.0 X10^3/uL (0.0-0.1) 07/13/21 04:53 Absolute Nucleated RBC 0.1 /100WBC 07/13/21 04:53 D-Dimer 1.37 ug/ml (0.0-0.57) H* 07/10/21 17:56 Sample Site Rra 07/10/21 18:55 ABG pH 7.460 (7.35-7.45) H 07/10/21 18:55 ABG pCO2 37.0 mmHg (35.0-45.0) 07/10/21 18:55 ABG pO2 55.0 mmHg (80.0-100.0) L 07/10/21 18:55 ABG HCO3 26.3 mmol/L (22-26) H 07/10/21 18:55 ABG O2 Saturation 90.0 % (90-100) 07/10/21 18:55 ABG Base Excess 2.5 mmol/L (-2.0-2.0) H 07/10/21 18:55 Pedro Test Pos 07/10/21 18:55 A-a Gradient 155.0 mmHg 07/10/21 18:55 FiO2 36.0 07/10/21 18:55 Blood Gas Comments Michael well ms/mtf 07/10/21 18:55 Sodium 143 mmol/L (136-145) 07/13/21 04:53 Corrected Sodium 148 mmol/L (136-145) H 07/13/21 04:53 Potassium 4.0 mmol/L (3.5-5.1) 07/13/21 04:53 Chloride 106 mmol/L (98-107) 07/13/21 04:53 Carbon Dioxide 30.1 mmol/L (21-32) 07/13/21 04:53 BUN 21 mg/dL (7-18) H 07/13/21 04:53 Creatinine 1.20 mg/dL (0.55-1.02) H 07/13/21 04:53 Est GFR (MDRD) Af Amer 58 (>60) L 07/13/21 04:53 Est GFR (MDRD) Non-Af 48 (>60) L 07/13/21 04:53 Glucose 303 mg/dL (65-99) H 07/13/21 04:53 POC Glucose (mg/dL) 320 mg/dL (65-99) H 07/13/21 05:24 Lactic Acid 1.4 mmol/L (0.4-2.0) 07/10/21 17:56 Calcium 7.8 mg/dL (8.5-10.1) L 07/13/21 04:53 Corrected Calcium 9.0 mg/dL (8.5-10.1) 07/13/21 04:53 Ferritin 805 ng/mL (8-252) H 07/10/21 17:56 Total Bilirubin 0.30 mg/dL (0.2-1.0) 07/13/21 04:53 AST 21 Units/L (15-37) 07/13/21 04:53 ALT 14 Units/L (12-78) 07/13/21 04:53 Alkaline Phosphatase 61 Units/L (46-116) 07/13/21 04:53 Creatine Kinase 36 Units/L (26-192) 07/10/21 17:56 CK-MB (CK-2) < 1.0 ng/mL (0-4.0) 07/10/21 17:56 CK/CKMB % Calc 2.8 % (<4) 07/10/21 17:56 Troponin I < 0.02 ng/mL (0-1.5) 07/10/21 17:56 C-Reactive Protein 32.10 mg/L (0-3.0) H 07/12/21 04:50 B-Natriuretic Peptide 398 pg/mL (0-79) H 07/10/21 17:56 Total Protein 6.4 g/dL (6.4-8.2) 07/13/21 04:53 Albumin 2.5 g/dL (3.4-5.0) L 07/13/21 04:53 Globulin 3.9 g/dL (2.5-4.5) 07/13/21 04:53 Albumin/Globulin Ratio 0.6 Ratio (1.1-2.1) L 07/13/21 04:53 SARS-CoV-2 (PCR) Positive (NEGATIVE) A 07/10/21 18:08 Influenza Type A (PCR) Negative (NEGATIVE) 07/10/21 18:08 Influenza Type B (PCR) Negative (NEGATIVE) 07/10/21 18:08 RSV (PCR) Negative (NEGATIVE) 07/10/21 18:08 Plan (1) Pneumonia: Status: Acute Qualifiers: Laterality: unspecified laterality Lung location: unspecified part of lung Pneumonia type: due to unspecified organism Qualified Code(s): J18.9 - Pneumonia, unspecified organism (2) COVID-19 virus infection: Status: Acute (3) Acute respiratory failure with hypoxia: Status: Acute (4) HTN (hypertension): Status: Acute Qualifiers: Hypertension type: primary hypertension Qualified Code(s): I10 - Essential (primary) hypertension
[2021-07-13] MEDS: NovoLIN N or HumuLIN N SC SCH ×2 (11:36→21:21)
[2021-07-13] MEDS ORDERED: ZOSYN VIAL 3.375 GRAMS IV ONE (13:19)
[2021-07-13] MEDS ORDERED: REMDESIVIR IV ONE (19:47)
[2021-07-13] MEDS: SNACK - Diabetic Appropriate PO SCH (20:00)
[2021-07-13] MEDS ORDERED: NS 250 ML IV 250 ML IV ONE (20:55)
[2021-07-13] MEDS: REMDESIVIR 100 MG in NS 100 ML IV + SPIKE MINIBAG* 120 ML IV SCH (21:20)
[2021-07-13] MEDS: NS 250 ML IV 250 ML IV SCH (21:30)
[2021-07-13] MEDS ORDERED: ZOFRAN INJ 4 MG VIAL IVP PRN (21:45)
[2021-07-13] MEDS ORDERED: ZOFRAN INJ 4 MG VIAL ONE (21:52)
[2021-07-14] MEDS: ZOSYN VIAL 3.375 GRAMS 3.375 G in NS 100 ML IV + SPIKE MINIBAG* 100 ML IV SCH (05:31)
[2021-07-14] MEDS: SOLU-Medrol 40 MG VIAL IVP SCH (05:31)
[2021-07-14 05:32] LABS: BASOPHILS % (AUTO) 0.1 % (0.2-1.0); HEMATOCRIT 34.5 % (36.0-47.0); HEMOGLOBIN 11.8 g/dL (12.0-16.0); LYMPHOCYTES # (AUTO) 0.7 X10^3/uL (1.3-2.9); LYMPHOCYTES % (AUTO) 15.5 % (21.0-51.0); MEAN CORPUSCULAR HEMOGLOBIN 28.9 pg (27.0-34.0); MEAN CORPUSCULAR HGB CONC 34.3 g/dL (33.0-35.0); MEAN CORPUSCULAR VOLUME 84.3 fL (80.0-100.0); MEAN PLATELET VOLUME 8.7 fL (7.4-11.0); MONOCYTES # (AUTO) 0.4 x10^3/uL (0.3-0.8); MONOCYTES % (AUTO) 8.7 % (0.0-13.0); NEUTROPHILS # (AUTO) 3.5 x10^3/uL (2.2-4.8); NEUTROPHILS % (AUTO) 75.7 % (42.0-75.0); PLATELET COUNT 290 X10^3/uL (150.0-450.0); RED BLOOD COUNT 4.09 X10^6/uL (3.5-5.4); WHITE BLOOD COUNT 4.7 X10^3/uL (3.6-10.0)
[2021-07-14 05:47] LABS: ALANINE AMINOTRANSFERASE 15 Units/L (12-78); ALBUMIN 2.5 g/dL (3.4-5.0); ALKALINE PHOSPHATASE 56 Units/L (46-116); ASPARTATE AMINO TRANSFERASE 19 Units/L (15-37); BLOOD UREA NITROGEN 25 mg/dL (7-18); CALCIUM 7.8 mg/dL (8.5-10.1); CARBON DIOXIDE 31.3 mmol/L (21-32); CHLORIDE 107 mmol/L (98-107); COR NA(FOR HYPERGLY) 147 mmol/L (136-145); CREATININE 1.12 mg/dL (0.55-1.02); SODIUM 146 mmol/L (136-145); TOTAL PROTEIN 6.1 g/dL (6.4-8.2); eGFR NON BLACK RACES 52 (>60)
[2021-07-14] MEDS ORDERED: LEXAPRO ONE (07:57)
[2021-07-14] MEDS ORDERED: K-DUR TAB 20 MEQ PO SCH (09:00)
[2021-07-14] MEDS: PULMICORT NEB TX 0.5 MG NEB SCH (09:10)
[2021-07-14] MEDS: BROVANA IN SCH (09:10)
[2021-07-14] MEDS: LEXAPRO PO SCH (09:56)
[2021-07-14] MEDS: LOPRESSOR TAB 25 MG PO SCH (09:56)
[2021-07-14] MEDS: ZINC SULFATE PO SCH (09:57)
[2021-07-14] MEDS: VITAMIN C PO SCH (09:57)
[2021-07-14] MEDS: VITAMIN D3 125 mcg (5,000 UNITS) PO SCH (09:57)
[2021-07-14] MEDS: LOVENOX INJ 30 MG SYR SC SCH (09:59)
[2021-07-14] MEDS: TRICOR TAB 160 MG PO SCH (10:00)
[2021-07-14] MEDS: SYNTHROID 175 mcg TAB PO SCH (10:00)
[2021-07-14] MEDS: PEPCID TAB 20 MG PO SCH (10:00)
[2021-07-14] MEDS: PriLOSEC PO SCH (10:00)
[2021-07-14] MEDS: NORVASC TAB 5 MG PO SCH (10:00)
[2021-07-14] MEDS: NS 250 ML IV 250 ML IV SCH (10:02)
[2021-07-14] MEDS ORDERED: SOLU-Medrol 40 MG VIAL IVP SCH (14:00)
[2021-07-14 14:04] VITALS: BP 173/77
--- NOTE | 2021-07-18 08:49 | W.DIS.FURT ---
Summary of Discharge Discharge Summary of Date Date of Exam: 07/14/21 Admission Date Date of Admission: 07/11/21 Admission Diagnosis Patient Problems (Updated 07/13/21 @ 10:36 by Mirtha Phoenix) Pneumonia (Acute) J18.9 COVID-19 virus infection (Acute) U07.1 Hypoxia (Acute) R09.02 Hospital Course: Ms Craven is a 66y/o female with a PMH of asthma, Diabetes, HTN and HLD presented with worsening dyspnea, generalized weakness and poor appetite. Patient reports being sick for over a week and was being treated outpatient. Her daughter had covid over 2 weeks ago. Patient has not had covid infection before. She did have some nausea, vomiting and decreased appetite. She has been afebrile. She was placed on 6L NC on admission. Patient had elevated d-dimer, CTPE showed no PE, bilateral pulmonary opacities. Patient was admitted to ICU with COVID protocol. She was started on IV Remdesivir, Solumedrol and antibiotics. She also received nebs and pulmicort. Patient was also started on PT/OT. Her labs were monitored daily. She was weaned down to 3L and doing well. Patient was stable to be discharged home. She will need home O2. She will follow up with PCP as scheduled. Labs: Laboratory Last Values WBC 4.7 X10^3/uL (3.6-10.0) 07/14/21 04:43 RBC 4.09 X10^6/uL (3.5-5.4) 07/14/21 04:43 Hgb 11.8 g/dL (12.0-16.0) L 07/14/21 04:43 Hct 34.5 % (36.0-47.0) L 07/14/21 04:43 MCV 84.3 fL (80.0-100.0) 07/14/21 04:43 MCH 28.9 pg (27.0-34.0) 07/14/21 04:43 MCHC 34.3 g/dL (33.0-35.0) 07/14/21 04:43 RDW 15.0 % (11.6-16.5) 07/14/21 04:43 Plt Count 290 X10^3/uL (150.0-450.0) 07/14/21 04:43 MPV 8.7 fL (7.4-11.0) 07/14/21 04:43 Neut % (Auto) 75.7 % (42.0-75.0) H 07/14/21 04:43 Lymph % (Auto) 15.5 % (21.0-51.0) L 07/14/21 04:43 [place] % (Auto) 8.7 % (0.0-13.0) 07/14/21 04:43 Eos % (Auto) 0.0 % (0.9-2.9) L 07/14/21 04:43 Baso % (Auto) 0.1 % (0.2-1.0) L 07/14/21 04:43 Neut # (Auto) 3.5 x10^3/uL (2.2-4.8) 07/14/21 04:43 Lymph # (Auto) 0.7 X10^3/uL (1.3-2.9) L 07/14/21 04:43 [place] # (Auto) 0.4 x10^3/uL (0.3-0.8) 07/14/21 04:43 Eos # (Auto) 0.0 x10^3/uL (0.0-0.2) 07/14/21 04:43 Baso # (Auto) 0.0 X10^3/uL (0.0-0.1) 07/14/21 04:43 Absolute Nucleated RBC 0.2 /100WBC 07/14/21 04:43 D-Dimer 1.37 ug/ml (0.0-0.57) H* 07/10/21 17:56 Sample Site Rra 07/10/21 18:55 ABG pH 7.460 (7.35-7.45) H 07/10/21 18:55 ABG pCO2 37.0 mmHg (35.0-45.0) 07/10/21 18:55 ABG pO2 55.0 mmHg (80.0-100.0) L 07/10/21 18:55 ABG HCO3 26.3 mmol/L (22-26) H 07/10/21 18:55 ABG O2 Saturation 90.0 % (90-100) 07/10/21 18:55 ABG Base Excess 2.5 mmol/L (-2.0-2.0) H 07/10/21 18:55 Pedro Test Pos 07/10/21 18:55 A-a Gradient 155.0 mmHg 07/10/21 18:55 FiO2 36.0 07/10/21 18:55 Blood Gas Comments Michael well ms/mtf 07/10/21 18:55 Sodium 146 mmol/L (136-145) H 07/14/21 04:43 Corrected Sodium 147 mmol/L (136-145) H 07/14/21 04:43 Potassium 3.2 mmol/L (3.5-5.1) L 07/14/21 04:43 Chloride 107 mmol/L (98-107) 07/14/21 04:43 Carbon Dioxide 31.3 mmol/L (21-32) 07/14/21 04:43 BUN 25 mg/dL (7-18) H 07/14/21 04:43 Creatinine 1.12 mg/dL (0.55-1.02) H 07/14/21 04:43 Est GFR (MDRD) Af Amer > 60 (>60) 07/14/21 04:43 Est GFR (MDRD) Non-Af 52 (>60) L 07/14/21 04:43 Glucose 127 mg/dL (65-99) H 07/14/21 04:43 POC Glucose (mg/dL) 205 mg/dL (65-99) H 07/14/21 10:40 Lactic Acid 1.4 mmol/L (0.4-2.0) 07/10/21 17:56 Calcium 7.8 mg/dL (8.5-10.1) L 07/14/21 04:43 Corrected Calcium 9.0 mg/dL (8.5-10.1) 07/14/21 04:43 Ferritin 805 ng/mL (8-252) H 07/10/21 17:56 Total Bilirubin 0.20 mg/dL (0.2-1.0) 07/14/21 04:43 AST 19 Units/L (15-37) 07/14/21 04:43 ALT 15 Units/L (12-78) 07/14/21 04:43 Alkaline Phosphatase 56 Units/L (46-116) 07/14/21 04:43 Creatine Kinase 36 Units/L (26-192) 07/10/21 17:56 CK-MB (CK-2) < 1.0 ng/mL (0-4.0) 07/10/21 17:56 CK/CKMB % Calc 2.8 % (<4) 07/10/21 17:56 Troponin I < 0.02 ng/mL (0-1.5) 07/10/21 17:56 C-Reactive Protein 32.10 mg/L (0-3.0) H 07/12/21 04:50 B-Natriuretic Peptide 398 pg/mL (0-79) H 07/10/21 17:56 Total Protein 6.1 g/dL (6.4-8.2) L 07/14/21 04:43 Albumin 2.5 g/dL (3.4-5.0) L 07/14/21 04:43 Globulin 3.6 g/dL (2.5-4.5) 07/14/21 04:43 Albumin/Globulin Ratio 0.7 Ratio (1.1-2.1) L 07/14/21 04:43 SARS-CoV-2 (PCR) Positive (NEGATIVE) A 07/10/21 18:08 Influenza Type A (PCR) Negative (NEGATIVE) 07/10/21 18:08 Influenza Type B (PCR) Negative (NEGATIVE) 07/10/21 18:08 RSV (PCR) Negative (NEGATIVE) 07/10/21 18:08 Reason For Visit: pneumonia, hypoxia, covid 19 virus infection, chf Discharge Date Discharge Date: 07/14/21 Discharge Diagnosis All Active Problems (Updated 07/13/21 @ 10:36 by Mirtha Phoenix) HTN (hypertension) (Acute) Acute respiratory failure with hypoxia (Acute) Pneumonia (Acute) COVID-19 virus infection (Acute) Hypoxia (Acute) Plan of Treatment: Continue with present treatment and follow up plan. Pt is to keep follow up appointment as instructed and take medications as ordered. Discharge Medications Discharge Medications: No Known Drug Allergies Allergy (Verified 07/10/21 18:42) CONTINUE taking the following medications Humulin N NPH U-100 Insulin 51 unit SUBCUT BID 07/10/21 [History] Humulin R Regular U-100 Insuln 1 sliding scale dose SUBCUT TID 07/10/21 [History] amlodipine 5 mg PO DAILY 07/10/21 [History] atorvastatin 20 mg PO DAILY 07/10/21 [History] escitalopram oxalate 10 mg PO DAILY 07/10/21 [History] famotidine 20 mg PO BID 07/10/21 [History] levothyroxine [Euthyrox] 175 mcg PO DAILY 07/10/21 [History] metformin 500 mg PO DAILY 07/10/21 [History] metoprolol tartrate 25 mg PO BID 07/10/21 [History] omeprazole 40 mg PO DAILY 07/10/21 [History] New Prescriptions albuterol sulfate 2 puff INHALATION Q4-6H PRN #6.7 g 07/14/21 [Rx] albuterol sulfate 2.5 mg INHALATION Q6H #75 ml 07/14/21 [Rx] budesonide 1 ea NEB BIDRESP 10 Days #30 unit 07/14/21 [Rx] levofloxacin 750 mg PO DAILY #5 tab 07/14/21 [Rx] nebulizers #1 ea 07/14/21 [Rx] prednisone See Rx Instructions .ROUTE .COMPLEX #21 ea 07/14/21 [Rx] Follow up and Referral Follow Up: 1 Week (PCP) Discharge Disposition Discharge Disposition: Home Discharge Condition: Stable Discharge Plan Discharge Plan Hospital Course: Ms Craven is a 66y/o female with a PMH of asthma, Diabetes, HTN and HLD presented with worsening dyspnea, generalized weakness and poor appetite. Patient reports being sick for over a week and was being treated outpatient. Her daughter had covid over 2 weeks ago. Patient has not had covid infection before. She did have some nausea, vomiting and decreased appetite. She has been afebrile. She was placed on 6L NC on admission. Patient had elevated d-dimer, CTPE showed no PE, bilateral pulmonary opacities. Patient was admitted to ICU with COVID protocol. She was started on IV Remdesivir, Solumedrol and antibiotics. She also received nebs and pulmicort. Patient was also started on PT/OT. Her labs were monitored daily. She was weaned down to 3L and doing well. Patient was stable to be discharged home. She will need home O2. She will follow up with PCP as scheduled. Patient Disposition: 01 HOME, SELF-CARE Condition: Stable Health Concerns: Post Hospitalization: new medications and changes needed to prevent readmission or further decline. Pt educated and given instructions on all concerns. Care Plan Goals: Problem: Respiratory Complications Goal: Improved Uncomplicated Respiratory Status Instructions: Follow provided instructions. Follow up with primary physician as directed. Contact primary care physician or report to the closest Emergency Room if condition worsens. Plan of Treatment: Continue with present treatment and follow up plan. Pt is to keep follow up appointment as instructed and take medications as ordered. Prescription drug monitoring program results: PDMP reviewed and no concerns identified Prescriptions: New budesonide 0.5 mg/2 mL Suspension For Nebulization 1 ea NEB BIDRESP 10 Days Qty: 30 RF: 0 prednisone 10 mg tablets,dose pack See Rx Instructions .ROUTE .COMPLEX Qty: 21 RF: 0 levofloxacin 750 mg tablet 750 mg PO DAILY Qty: 5 RF: 0 (DME) nebulizers Misc See Rx Instructions .ROUTE .MEDSUPPLY Qty: 1 RF: 0 albuterol sulfate 2.5 mg /3 mL (0.083 %) solution for nebulization 2.5 mg inhalation Q6H Qty: 75 RF: 0 albuterol sulfate 90 mcg/actuation HFA aerosol inhaler 2 puff inhalation Q4-6H PRNQty: 6.7 RF: 0 Continued metformin 500 mg tablet 500 mg PO DAILY RF: 0 levothyroxine [Euthyrox] 175 mcg tablet 175 mcg PO DAILY RF: 0 atorvastatin 20 mg tablet 20 mg PO DAILY RF: 0 amlodipine 5 mg tablet 5 mg PO DAILY RF: 0 omeprazole 40 mg capsule,delayed release(DR/EC) 40 mg PO DAILY RF: 0 famotidine 20 mg tablet 20 mg PO BID RF: 0 Humulin R Regular U-100 Insuln 100 unit/mL Solution 1 sliding scale dose SUBCUT TID RF: 0 Humulin N NPH U-100 Insulin 100 unit/mL Suspension 51 unit SUBCUT BID RF: 0 escitalopram oxalate 10 mg tablet 10 mg PO DAILY RF: 0 metoprolol tartrate 25 mg tablet 25 mg PO BID RF: 0 Discontinued amoxicillin-pot clavulanate 875-125 mg tablet 1 tab PO BID RF: 0 Follow ups/Referrals Follow ups/Referrals: [facility] [Other] PEDRO MORALES [Primary Care Provider] - 07/22/21 11:00 am Instructions Instructions: Fall Prevention in the Home, Adult, [id number], How to Use an Incentive Spirometer, Viral Respiratory Infection, [id number], Home Oxygen Use, Adult, Hand Washing, Picu-lv-[id number], Hypoxia, Type 2 Diabetes Mellitus, Self- Care, Adult, Iwkp-ie-[id number], Droplet Precautions, Onfd-na-[id number], Contact Precautions, Bpic-jt-[id number], Hypertension, Adult, [id number]-dr-Rczg, Acute Respiratory Failure, Adult, Community-Acquired Pneumonia, Adult, [id number] Stand Alone Forms: Precautions for COVID19, [facility], Patient Portal, Soci al Distancing
== END 2021-07-14 14:07 | disposition home or self-care (01) | DRG 177 ==
LOC: ER 17:07 → ICU 21:19
PROVIDERS: ADMIT Internal Medicine; ATTEND Internal Medicine
DX: J96.01 Acute respiratory failure with hypoxia; E11.65 Type 2 diabetes mellitus with hyperglycemia; I10 Essential (primary) hypertension; R06.02 Shortness of breath; R79.89 Other specified abnormal findings of blood chemistry; R79.82 Elevated C-reactive protein (CRP); U07.1 COVID-19; J12.82 Pneumonia due to coronavirus disease 2019